=== PATIENT | female | born 1945 | race Caucasian/White ===

== ENCOUNTER → 2023-02-09 | Outpatient (REF) | payer MEDICARE, BC ==
[2023-02-09 19:02] LABS: PERCENT SATURATION 10.4 % (13.2-45.0)
== END ==
LOC: M LAB REF 17:09
PROVIDERS: ATTEND Internal Medicine Nephrology
DX: D50.9 Iron deficiency anemia, unspecified (principal)

== ENCOUNTER → 2024-10-18 | Outpatient (REF) | payer MEDICARE ==
[~2024-10-18] MED LIST: ATOR1TAB21; CARV12.5; ENTR1TAB7; FERR32TA; GABA-1171; GABA-1635; HYDR25TA87; JANU25TA; LEVO100T5; MECL-86; PANT40TA29; SPIR-10; VITAMIN D PO
[2024-10-18 19:40] LABS: PERCENT SATURATION 20.2 % (13.2-45.0)
== END ==
LOC: M LAB REF 17:34
PROVIDERS: ATTEND Internal Medicine Nephrology
DX: D50.9 Iron deficiency anemia, unspecified (principal)

== ENCOUNTER → 2024-10-29 | Outpatient (CLI) | payer MEDICARE | LOC: M PLARAD 07:52 | PROVIDERS: ATTEND Internal Medicine Medical Oncology | DX: C18.2 Malignant neoplasm of ascending colon (principal); K57.30 Diverticulosis of large intestine without perforation or abscess without bleeding; Z90.49 Acquired absence of other specified parts of digestive tract | CPT/HCPCS: 78815; A9552 ==